=== PATIENT | male | born 1995 | race Caucasian/White ===

== ENCOUNTER 2019-06-09 05:04 | Outpatient (CLI) | payer OTHER | END 2019-06-09 05:05 | disposition critical access hospital (66) | LOC: EMS 05:04 | PROVIDERS: ATTEND Surgery | DX: R56.9 Unspecified convulsions (principal) | CPT/HCPCS: A0425; A0429 ==

== ENCOUNTER 2019-06-09 05:26 | Emergency (ER) | payer OTHER ==
--- NOTE | 2019-06-09 05:27 | ED Physician Documentation ---
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 roommate heard strange noises, turned on light to find patient seizing, generalized clonic activity lasting approximately 1 minute. resolved by the time medics arrived but they report approximately 10 minutes of disorientation c/w post-ictal state. gradually improved and arrives AAOx3 and asymptomatic in ED. no h/o seizures, denies heavy/regular alcohol intake Review of Systems Constitutional: reports: Reviewed and negative Eyes: reports: Reviewed and negative Cardiac: reports: Reviewed and negative Respiratory: reports: Reviewed and negative GI: reports: Reviewed and negative Musculoskeletal: reports: Reviewed and negative Neurologic: reports: Seizure. denies: Generalized weakness, Focal weakness, Numbness, Headache PD PAST MEDICAL HISTORY - Past Medical History Past Medical History: No - Past Surgical History Past Surgical History: No - Present Medications Home Medications: Ambulatory Orders Medication Instructions Recorded Confirmed Levetiracetam [Keppra] 750 mg PO BID #40 tablet 06/09/19 Omeprazole 40 mg PO 06/09/19 - Allergies Allergies/Adverse Reactions: Allergies Allergy/AdvReac Type Severity Reaction Status Date / Time No Known Drug Allergies Allergy Verified 06/09/19 12:51 - Social History Does the pt have substance abuse?: No PD ED PE NORMAL - Vitals Vital signs reviewed: Yes - General General: Alert and oriented X 3, No acute distress, Well developed/nourished - HEENT HEENT: Atraumatic, PERRL, EOMI, Moist mucous membranes, Other (left lateral tongue ecchymosis) - Neck Neck: Supple, no meningeal sign - Cardiac Cardiac: RRR, No murmur - Respiratory Respiratory: No respiratory distress, Clear bilaterally - Abdomen Abdomen: Soft, Non tender - Derm Derm: Normal color, Warm and dry - Neuro Neuro: Alert and oriented X 3, 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, No motor deficit, No sensory deficit, Normal speech Eye Opening: Spontaneous Motor: Obeys Commands Verbal: Oriented GCS Score: 15 - Psych Psych: Normal mood, Normal affect Results - Vitals Vitals: Vital Signs - 24 hr 06/09/19 06/09/19 05:31 06:42 Temperature 36.9 C Heart Rate 82 80 Respiratory 18 18 Rate Blood Pressure 158/78 H 124/93 H O2 Saturation 95 98 Oxygen O2 Source Room air - Labs Labs: Laboratory Tests 06/09/19 06/09/19 05:40 05:40 WBC 4.4 L RBC 5.15 Hgb 15.8 Hct 45.4 MCV 88.2 MCH 30.7 MCHC 34.8 RDW 11.7 L Plt Count 170 MPV 11.5 H Neut # (Auto) 2.7 Lymph # (Auto) 1.2 L [place] # (Auto) 0.4 Eos # (Auto) 0.1 Baso # (Auto) 0.0 Absolute Nucleated RBC 0.00 Nucleated RBC % 0.0 Sodium 142 Potassium 3.8 Chloride 107 Carbon Dioxide 25 Anion Gap 10.0 BUN 18 Creatinine 1.1 Estimated GFR (MDRD) 82 L Glucose 113 H Calcium 9.3 Total Bilirubin 1.0 AST 29 ALT 41 Alkaline Phosphatase 69 Total Protein 7.1 Albumin 4.3 Globulin 2.8 Albumin/Globulin Ratio 1.5 Lipase 30 PD MEDICAL DECISION MAKING - ED course Complexity details: reviewed results, re-evaluated patient, considered differential, d/w patient Departure - Departure Disposition: 01 Home, Self Care Clinical Impression: Seizure Condition: Good Instructions: ED Seizure New Onset Unk Cause Follow-Up: SHIRA Guerrero [Provider Group] (Call to arrange for next available appointment) Discharge Date/Time: 06/09/19 06:48
[2019-06-09 05:46] LABS: BASOPHILS % (AUTO) 0.7 %; EOSINOPHILS # (AUTO) 0.1 10^3/uL (0.0-0.7); EOSINOPHILS % (AUTO) 2.5 %; HGB - HEMOGLOBIN 15.8 g/dL (14.0-18.0); LYMPHOCYTES # (AUTO) 1.2 10^3/uL (1.5-3.5); LYMPHOCYTES % (AUTO) 26.8 %; MEAN CORPUSCULAR HEMOGLOBIN 30.7 pg (27.0-31.0); MEAN CORPUSCULAR HGB CONC 34.8 g/dL (32.0-36.0); MEAN CORPUSCULAR VOLUME 88.2 fL (80.0-94.0); MEAN PLATELET VOLUME 11.5 fL (7.4-11.4); MONOCYTES # (AUTO) 0.4 10^3/uL (0.0-1.0); MONOCYTES % (AUTO) 9.1 %; NEUTROPHILS # (AUTO) 2.7 10^3/uL (1.5-6.6); NEUTROPHILS % (AUTO) 60.7 %; PLT - PLATELET COUNT 170 10^3/uL (130-450); RED BLOOD COUNT 5.15 10^6/uL (4.70-6.10); RED CELL DISTRIBUTION WIDTH 11.7 % (12.0-15.0); WHITE BLOOD COUNT 4.4 x10^3/uL (4.8-10.8)
[2019-06-09 05:58] LABS: ALBUMIN 4.3 g/dL (3.2-5.5); ALBUMIN/GLOBULIN RATIO 1.5 (1.0-2.2); CALCIUM 9.3 mg/dL (8.5-10.3); CREATININE 1.1 mg/dL (0.6-1.2); TOTAL PROTEIN 7.1 g/dL (6.7-8.2)
[2019-06-09 06:43] VITALS: BP 124/93
== END 2019-06-09 06:48 | disposition home or self-care (01) ==
LOC: ED 05:26
DX: R56.9 Unspecified convulsions (principal)
CPT/HCPCS: 36415; 80053; 83690; 85025; 99284

== ENCOUNTER 2019-06-09 12:45 | Emergency (ER) | payer OTHER ==
--- NOTE | 2019-06-09 15:04 | ED Physician Documentation ---
History of Present Illness - Stated complaint Stated Complaint: SZ - Chief complaint Chief Complaint: Neuro - Additonal information Additional information: This is a 24-year-old male who resents with concern for recurrent seizures. Patient states for last 2 years all episodes where he zones out, his friends have noticed that he will staff in the space and have some lipsmacking. These will last from a few seconds to maybe 30 seconds and then he will seem to snap back to awareness and act normal. He has never seen a neurologist for this. At 4 AM this morning he has what described his friend is a tonic-clonic seizure, he had a postictal. He was brought into the emergency department had labs which are unremarkable and is discharged home. He then had several more episodes of these lip smacking and staring off in space episodes of his roommate brought him back in for evaluation. Patient states that typically will have several episodes like this per week. He thinks it is related somewhat to stress. He denies alcohol use or drug use. No chest pain shortness of breath Review of Systems Constitutional: denies: Fever Eyes: denies: Loss of vision Cardiac: denies: Chest pain / pressure GI: denies: Abdominal Pain Musculoskeletal: denies: Neck pain Neurologic: reports: Seizure. denies: Generalized weakness Immunocompromised: denies: Immunocompromised PD PAST MEDICAL HISTORY - Past Medical History Past Medical History: No - Past Surgical History Past Surgical History: No - Present Medications Home Medications: Ambulatory Orders Medication Instructions Recorded Confirmed Levetiracetam [Keppra] 750 mg PO BID #40 tablet 06/09/19 Omeprazole 40 mg PO 06/09/19 - Allergies Allergies/Adverse Reactions: Allergies Allergy/AdvReac Type Severity Reaction Status Date / Time No Known Drug Allergies Allergy Verified 06/09/19 12:51 - Social History Does the pt smoke?: No Smoking Status: Never smoker Does the pt drink ETOH?: No Does the pt have substance abuse?: No - Immunizations Immunizations are current?: Yes - POLST Patient has POLST: No PD ED PE NORMAL - Vitals Vital signs reviewed: Yes - General General: Alert and oriented X 3, No acute distress - HEENT HEENT: PERRL - Neck Neck: Supple, no meningeal sign - Cardiac Cardiac: RRR, No murmur - Respiratory Respiratory: Clear bilaterally - Abdomen Abdomen: Normal bowel sounds, Soft, Non tender, Non distended - Derm Derm: Warm and dry - Extremities Extremities: No deformity - Neuro Neuro: Alert and oriented X 3, 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, No motor deficit, No sensory deficit, Normal speech - Psych Psych: Normal mood, Normal affect Results - Vitals Vitals: Oxygen O2 Source Room air - EKG (time done) 15:32 Other comments: Other comments (Rate 64, rhythm sinus there is no ST segment elevation or depression, no abnormal T wave inversions) - Rads (name of study) CT head WO Radiology: Other (No acute intracranial abnormality.) PD MEDICAL DECISION MAKING - ED course Complexity details: considered differential (Seizure, absence seizure, mass, electrolyte abnormality, dysrhtymia, pseudo-seizure) ED course: Pt presents with recurrence of potential seizure episodes, he was seen last night for a possible tonic-clonic seizure and his labs were unremarkable so he was discharged. He is now having only episodes that could be absence/partial seizures, with a few seconds of staring into space and lip smacking. I watched a video of this that his friend filmed, and though it does not appear to be a classic seizure, as he has some voluntary movements and response to talking during the episode, it could be a partial seizure. These episodes have gone on for several years but have not been worked up. His neuro exam now is normal. Labs reviewed from yesterday are unremarkable. EKG shows no signs of dysrhythmia. CT head today unremarkable. I spoke with [facility] neurology, who recommended starting Keppra and outpatient neurology followup. Pt states that to see neurology, he will need to have a referral from his PCP. I recommended calling today for referral and contacting the neurology office directly as well. I reviewed return precautions and seizure precautions, including no driving, etc until cleared by a neurologist. Pt agrees and was discharged in the care of his friends. Departure - Departure Disposition: 01 Home, Self Care Clinical Impression: Seizure Condition: Good Instructions: Epilepsy Self Care Follow-Up: Your,PCP [Other] (Within the next week for neurology referral) Prescriptions: Levetiracetam [Keppra] 750 mg PO BID #40 tablet Comments: You were seen today for what appears to be seizures. You need to see a neurologist and have an EEG and likely MRI done. I spoke to the neurology team at [facility], and they recommend that you start levetiracetam 750 mg twice a day. Follow-up with your primary care provider soon as possible, and also get an appointment with a neurologist at the earliest possible available appointment. If you are having new or worsening symptoms such as repeated seizures, confusion, severe headache, return to the emergency department. Avoid drugs and alcohol. You should not climb ladders or work at heights, drive a car, swim unsupervised, or do any other activities that could cause you or others harm if you were to have a seizure during them, and should not resume these activities until you are cleared by a neurologist. Forms: Activity restrictions Discharge Date/Time: 06/09/19 17:28
--- NOTE | 2019-06-09 15:37 | CT Report ---
Reason: Seizure Procedure Date: 06/09/2019 Accession Number: [id number] / [id number] Procedure: CT - HEAD WO CPT Code: Addended Final Report FULL RESULT: EXAM: CT HEAD EXAM DATE: 06/09/2019 03:30 PM. CLINICAL HISTORY: Seizure. COMPARISON: None. TECHNIQUE: Multiaxial CT images were obtained from the foramen magnum to the vertex. Reformats: Sagittal and coronal. IV contrast: None. In accordance with CT protocol optimization, one or more of the following dose reduction techniques were utilized for this exam: automated exposure control, adjustment of mA and/or KV based on patient size, or use of iterative reconstructive technique. FINDINGS: Parenchyma: No intraparenchymal hemorrhage. No evidence of mass, midline shift, or CT findings of infarction. Pantoja-white differentiation is distinct. Extraaxial Spaces: Normal for age. No subdural or epidural collections identified. Ventricles: Normal in size and position. Sinuses and Orbits: Imaged paranasal sinuses, orbits, and mastoids show no significant abnormality. Bones: No evidence of fracture or calvarial defect. Other: None. IMPRESSION: No acute intracranial abnormality. RADIA
[2019-06-09] MEDS ORDERED: levETIRAcetam 250 MG TABLET PO STA (17:05)
[2019-06-09 17:29] VITALS: BP 144/76
== END 2019-06-09 17:28 | disposition home or self-care (01) ==
LOC: ED 12:45
DX: R56.9 Unspecified convulsions (principal)
CPT/HCPCS: 36415; 70450; 80053; 83690; 85025; 93005; 99284; A9270